=== PATIENT | male | born 1960 | race Caucasian/White ===

== ENCOUNTER 2022-08-05 07:57 | Outpatient (CLI) | payer OTHER, SELFPAY ==
[2022-08-05 14:24] LABS: Albumin* 4.6 g/dL (3.3-5.0); Chloride* 102 mmol/L (96-114); Potassium* 3.5 mmol/L (3.6-5.1); Sodium* 138 mmol/L (135-149)
[2022-08-05 14:26] LABS: Aspartate Amino Transferase* 58 U/L (12-35); Bilirubin Total* 0.7 mg/dL (0.1-1.5); Carbon Dioxide* 21 mmol/L (20-32); Creatinine* 1.1 mg/dL (0.5-1.5); Estimated Glomerular Filt Rate 76 ml/min
[2022-08-05 14:27] LABS: Alanine Aminotransferase* 42 U/L (4-50); Alkaline Phosphatase* 64 U/L (40-150); Blood Urea Nitrogen* 25 mg/dL (7-30); Calcium* 9.6 mg/dL (8.4-10.6); Glucose* 130 mg/dL (60-115); Total Protein* 7.3 g/dL (6.0-8.3)
== END 2022-08-05 07:58 | disposition home or self-care (01) ==
PROVIDERS: PCP Family Medicine; Visit Provider Physician Assistant Medical
DX: R10.32 Left lower quadrant pain (principal); R19.7 Diarrhea, unspecified
CPT/HCPCS: 80053

== ENCOUNTER 2022-08-13 09:02 | Outpatient (CLI) | payer OTHER, SELFPAY ==
--- NOTE | 2022-08-13 10:00 | CRLHL7_ITS ---
For Patients: As a result of the Century Cures Act, medical imaging exams and procedure reports are released immediately into your electronic medical record. You may view this report before your referring provider. If you have questions, please contact your health care provider. Indication: HX OF DIVERTICULITIS. NOW LLQ ABD PAIN, NAUSEA Technique: Postcontrast CT abdomen and pelvis. Oral water. 98 cc Isovue 370 intravenous contrast. Please note that all CT scans at this facility use dose modulation, iterative reconstruction, and/or weight-based dosing when appropriate to reduce radiation dose to as low as reasonably achievable. Comparison: None Findings: Lung bases clear. No hepatic lesion. No stigmata of cirrhosis. Normal gallbladder. Spleen normal. Normal adrenal glands. Kidneys normal. Atherosclerotic disease. Low-density lesion within the pancreatic body measuring 1.4 cm. Additional low-density structure in the uncinate process measuring 9 millimeters. Numerous subcentimeter central mesenteric fat lymph nodes are present. No bowel obstruction or free air. No free fluid or abscess. Sigmoid diverticulosis. No acute inflammation. Appendix measures 5 millimeters, normal. Normal bladder. Prostate not enlarged. Degenerative changes. No fracture. Impression: Moderately severe chronic sigmoid diverticulosis without acute inflammation. Low-density pancreatic lesions measuring up to 1.4 cm. Pre and postcontrast pancreatic MRI recommended for further evaluation. Please note that all CT scans at this facility use dose modulation, iterative reconstruction, and/or weight-based dosing when appropriate to reduce radiation dose to as low as reasonably achievable. Dictated by Radu Sheets MD @ 08/13/2022 12:31:44 PM (Electronically Signed)
== END 2022-08-13 09:03 | disposition home or self-care (01) ==
LOC: CT 09:04
PROVIDERS: PCP Physician Assistant Medical; Visit Provider Physician Assistant Medical
DX: R10.32 Left lower quadrant pain (principal); K57.30 Diverticulosis of large intestine without perforation or abscess without bleeding; K86.89 Other specified diseases of pancreas
CPT/HCPCS: 74177; Q9967

== ENCOUNTER 2022-08-25 13:29 | Outpatient (CLI) | payer OTHER, SELFPAY ==
--- NOTE | 2022-08-25 13:45 | CRLHL7_ITS ---
For Patients: As a result of the Century Cures Act, medical imaging exams and procedure reports are released immediately into your electronic medical record. You may view this report before your referring provider. If you have questions, please contact your health care provider. INDICATION: Pancreatic lesion. TECHNIQUE: Abdominal MRI with T1 in- and out of phase, T2, diffusion weighted, and progressively delayed post-contrast images. Intravenous gadolinium administered. COMPARISON: CT scan of the abdomen and pelvis dated 13 August 2022. FINDINGS: No fatty infiltration of the liver. No focal abnormalities identified in the visualized portions of the liver, spleen, and adrenal glands. 1.4 cm cyst extending off the superior pole of the right kidney. The kidneys are otherwise unremarkable. No hydronephrosis. No adenopathy. 1.5 cm cyst in the head and body of the pancreas and 1.4 cm cyst in the uncinate process of the pancreas. The pancreas is otherwise unremarkable. No bile duct dilation. Normal size of the main pancreatic duct. IMPRESSION: 1. Two pancreatic cysts measuring up to 1.5 cm. 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 Recommend followup MRI in 1 year to begin documentation of stability. Management of Incidental Pancreatic Cysts: A White Paper of the ACR Incidental Findings Committee. Journal of the [employer]. Volume 14, Number 7, March 2017, pages [phone]. Dictated by Atilio Lombardi MD @ 09/01/2022 10:20:40 AM (Electronically Signed)
== END 2022-08-25 13:30 | disposition home or self-care (01) ==
LOC: MRI 13:29
PROVIDERS: PCP Physician Assistant Medical; Visit Provider Physician Assistant Medical
DX: K86.9 Disease of pancreas, unspecified (principal); K86.2 Cyst of pancreas
CPT/HCPCS: 74183; A9575

== ENCOUNTER 2022-11-05 14:34 | Outpatient (CLI) | payer OTHER, SELFPAY ==
[2022-11-05 13:57] LABS: Albumin* 4.6 g/dL (3.3-5.0); Chloride* 106 mmol/L (96-114)
[2022-11-05 13:58] LABS: Potassium* 4.5 mmol/L (3.6-5.1); Sodium* 138 mmol/L (135-149)
[2022-11-05 14:00] LABS: Bilirubin Total* 0.8 mg/dL (0.1-1.5); Carbon Dioxide* 23 mmol/L (20-32); Cholesterol* 171 mg/dL (90-199); Creatinine* 1.2 mg/dL (0.5-1.5); Estimated Glomerular Filt Rate 69 ml/min; Total Protein* 7.6 g/dL (6.0-8.3)
[2022-11-05 14:01] LABS: Alanine Aminotransferase* 28 U/L (4-50); Alkaline Phosphatase* 54 U/L (40-150); Aspartate Amino Transferase* 35 U/L (12-35); Blood Urea Nitrogen* 27 mg/dL (7-30); Calcium* 9.8 mg/dL (8.4-10.6); Glucose* 115 mg/dL (60-115); HDL Cholesterol* 39 mg/dL (>=40); LDL Cholesterol Calculated 83 mg/dL (<100); Triglycerides* 243 mg/dL (40-149)
== END 2022-11-05 14:35 | disposition home or self-care (01) ==
PROVIDERS: PCP Physician Assistant Medical; Visit Provider Physician Assistant Medical
DX: E11.9 Type 2 diabetes mellitus without complications (principal); E78.1 Pure hyperglyceridemia; I10 Essential (primary) hypertension
CPT/HCPCS: 80053; 80061; 84443

== ENCOUNTER 2022-11-10 13:21 | Outpatient (CLI) | payer OTHER, SELFPAY ==
[2022-11-10 15:01] LABS: PSA Screen* 1.56 ng/mL (0.10-4.00)
== END 2022-11-10 13:22 | disposition home or self-care (01) ==
PROVIDERS: PCP Physician Assistant Medical; Visit Provider Physician Assistant Medical
DX: Z12.5 Encounter for screening for malignant neoplasm of prostate (principal)
CPT/HCPCS: 84153

== ENCOUNTER 2023-12-06 08:15 | Outpatient (CLI) | payer OTHER, SELFPAY | END 2023-12-06 08:16 | disposition home or self-care (01) | LOC: NFLDREF 12-19 07:13 | PROVIDERS: PCP Physician Assistant Medical; Referring Provider Physician Assistant Medical; Visit Provider Physician Assistant Medical | DX: K86.2 Cyst of pancreas (principal); I10 Essential (primary) hypertension; E11.9 Type 2 diabetes mellitus without complications; E78.1 Pure hyperglyceridemia; Z12.5 Encounter for screening for malignant neoplasm of prostate; Z79.4 Long term (current) use of insulin; G47.33 Obstructive sleep apnea (adult) (pediatric); Z99.89 Dependence on other enabling machines and devices; B07.8 Other viral warts | CPT/HCPCS: 80053; 80061; 82043; 82570; G0103 ==

== ENCOUNTER 2023-12-14 09:04 | Outpatient (CLI) | payer OTHER, SELFPAY ==
--- NOTE | 2023-12-14 09:15 | MR_ITS ---
Patient: JOSSUE VU Facility:?[facility] Patient ID:?[id number] Site Patient ID:?[id number]. Site :?[id number] Study:?MRI-Abdomen W/ and W/O Cont 20 CC YOLI PANCREASE-12/14/2023 10:56:59 AM Ordering Physician:KEYSHA ARROYO Final Report: INDICATION: Pancreatic cyst. TECHNIQUE: Abdominal MRI with T1 in- and out of phase, T2, diffusion weighted, and progressively delayed post-contrast images. Intravenous gadolinium administered. COMPARISON: Abdominal MRI dated 25 August 2022. Findings : Mild diffuse fatty infiltration of the liver. No focal abnormalities identified in the visualized portions of the liver, spleen, and adrenal glands. 1.5 cm cyst extending off the superior pole of the right kidney. The kidneys are otherwise unremarkable. No hydronephrosis. 1.5 cm cyst in the body of the pancreas is unchanged. 1.4 cm cyst in the uncinate process of the pancreas is unchanged. The pancreas is otherwise unremarkable. No bile duct dilation. Normal size of the main pancreatic duct. Impression : 1. Two pancreatic cysts measuring up to 1.5 cm are unchanged. Recommend follow-up MRI in 1 year to continue documentation of stability. 2. Mild diffuse fatty infiltration of the liver. Management of Incidental Pancreatic Cysts: A White Paper of the ACR Incidental Findings Committee. Journal of the [employer]. Volume 14, Number 7, March 2017, pages [phone]. Dictated by Atilio Lombardi MD @ 12/14/2023 9:00:50 PM Signed by:?Atilio Lombardi MD @12/14/2023 9:00:50 PM (Electronic Signature)
== END 2023-12-14 09:05 | disposition home or self-care (01) ==
LOC: MRI 09:05
PROVIDERS: PCP Physician Assistant Medical; Visit Provider Physician Assistant Medical
DX: K86.2 Cyst of pancreas (principal); K76.0 Fatty (change of) liver, not elsewhere classified
CPT/HCPCS: 74183; A9575

== ENCOUNTER 2023-12-27 06:31 | Outpatient (CLI) | payer OTHER, SELFPAY ==
--- NOTE | 2023-12-27 08:03 | W.ANESCHARGE ---
Anesthesia Charges Start Date/Time Anesthesia Start Date: 12/27/23 Anesthesia Start Time: 07:17 Stop Date/Time Anesthesia Stop Date: 12/27/23 Anesthesia Stop Time: 07:58
== END 2023-12-27 06:32 | disposition home or self-care (01) ==
LOC: OP CLINIC 06:31
PROVIDERS: PCP Physician Assistant Medical; Visit Provider Internal Medicine
DX: Z12.11 Encounter for screening for malignant neoplasm of colon (principal); K63.5 Polyp of colon; K57.30 Diverticulosis of large intestine without perforation or abscess without bleeding
CPT/HCPCS: 00811; 45380; 88305; J2704

== ENCOUNTER 2024-12-18 08:47 | Outpatient (CLI) | payer OTHER, SELFPAY ==
--- NOTE | 2024-12-18 09:15 | CRLHL7_ITS ---
For Patients: As a result of the Century Cures Act, medical imaging exams and procedure reports are released immediately into your electronic medical record. You may view this report before your referring provider. If you have questions, please contact your health care provider. INDICATION: Pancreatic cyst TECHNIQUE: 1.5 T MRI of the abdomen performed with pre and postcontrast T1 weighted imaging; T2 weighted imaging; diffusion weighted imaging. 20 mL Dotarem IV COMPARISON: Abdominal MRI 12/14/2023 FINDINGS: Lungs: The lung bases are clear. No pleural or pericardial effusion. Liver: Homogeneous liver parenchyma. No hepatic masses. Hepatic steatosis. Right hepatic lobe subcentimeter T2 hyperintensity too small to accurately characterize, but likely benign a cyst. Biliary tree and gallbladder: No intra or extrahepatic biliary dilation. Fluid-filled gallbladder without stones. Spleen: Splenomegaly measuring 14 cm. Pancreas: Normal pancreatic parenchyma. No pancreatic masses. No pancreatic duct dilation. Increased pancreatic uncinate process cyst measuring 1.9 cm, previously 1.4 cm. Stable to slightly decreased pancreatic body cyst measuring 1.3 cm, previously 1.5 cm. No suspicious nodular enhancement, although there may be a thin enhancing septations within the uncinate process cyst (14/44). This appearance is similar to prior Adrenal glands: Unremarkable. Kidneys and ureters: No renal masses or hydronephrosis. Right renal cyst measures 2.1 cm. Subcentimeter left renal cyst is too small to accurately characterize, although also likely a benign cyst. Right renal hemorrhagic cyst measuring 0.9 cm, unchanged. GI tract: No evidence of obstruction or inflammation. Colonic diverticulosis. Vasculature: The IVC and aorta are patent. No abdominal aortic aneurysm. Lymph nodes: No lymphadenopathy. Abdominal wall: Unremarkable Bones: Bone marrow signal is within normal limits IMPRESSION: Increased pancreatic uncinate process cyst with similar thin enhancing septations, although no suspicious nodular enhancement. Decreased pancreatic body cyst without suspicious features. These may represent IPMNs. Recommend continued MRI follow-up to assess stability. Dictated by Janessa Mace MD @ 12/19/2024 10:37:33 AM (Electronically Signed)
== END 2024-12-18 08:48 | disposition home or self-care (01) ==
LOC: MRI 08:48
PROVIDERS: PCP Physician Assistant Medical; Visit Provider Physician Assistant Medical
DX: K86.2 Cyst of pancreas (principal)
CPT/HCPCS: 74183; A9575

== ENCOUNTER 2024-12-19 11:15 | Outpatient (RCR) | payer OTHER, SELFPAY | END 2025-04-18 23:59 | disposition home or self-care (01) | PROVIDERS: PCP Physician Assistant Medical; Visit Provider Physician Assistant Medical | DX: M54.12 Radiculopathy, cervical region (principal); M25.511 Pain in right shoulder; G89.29 Other chronic pain; Z51.89 Encounter for other specified aftercare | CPT/HCPCS: 97012; 97110; 97140; 97162 ==

== ENCOUNTER 2025-03-12 08:01 | Outpatient (CLI) | payer OTHER, SELFPAY | END 2025-03-12 08:02 | disposition home or self-care (01) | LOC: NFLDREF 03-15 09:20 | PROVIDERS: PCP Physician Assistant Medical; Referring Provider Physician Assistant Medical; Visit Provider Physician Assistant Medical | DX: Z00.00 Encounter for general adult medical examination without abnormal findings (principal); E11.9 Type 2 diabetes mellitus without complications; E78.1 Pure hyperglyceridemia; I10 Essential (primary) hypertension; K86.2 Cyst of pancreas; G47.33 Obstructive sleep apnea (adult) (pediatric); M54.12 Radiculopathy, cervical region; Z99.89 Dependence on other enabling machines and devices; Z79.4 Long term (current) use of insulin; Z12.5 Encounter for screening for malignant neoplasm of prostate | CPT/HCPCS: 80053; 80061; 82043; 82570; G0103 ==